=== PATIENT | female | born 1930 | race Caucasian/White ===

== ENCOUNTER 2017-06-08 12:47 | Day surgery (SDC) | payer OTHER ==
[~2017-06-08] VITALS: Ht 160 cm; Wt 57.1 kg
[2017-06-08] VITALS (7 sets, daily range): BP systolic 116–122; BP diastolic 58–69; PULSE 64–71; RESP 17–18; TEMP 98.2–98.4; O2SAT 92–95
[~2017-06-08 12:47] MED LIST: ASPI81 PO; CALC600T34 PO; CINNAMON; DEXAMETHASONE SOD PHOS 4 MG/ML VIAL IV ONE; FISH1000 PO; GLYCOPYRROLATE 1 MG/5 ML SYRINGE IV PUSH ONE; LIDOCAINE HCL 1% PF 5 ML SYRINGE OTHER ONE; MEVA40TA6 PO; NEOSTIGMINE 5 MG/5 ML SYRINGE IV PUSH ONE; ONDANSETRON HCL 4 MG/2 ML VIAL IV ONE; PHENYLEPH/NS 1000 MCG/10 ML SYR IV ONE; PROPOFOL 200 MG/20 ML AMP IV ONE; ROCURONIUM INJ 50 MG/5 ML SYRINGE IV PUSH ONE; VASO10TA8 PO; ePHEDrine/NS 25 MG/5 ML SYRINGE IV ONE
[2017-06-08] MEDS ORDERED: SODIUM CHLORID 0.9% 500 ML INJ 500 ML IV SCH (13:15)
[2017-06-08] MEDS ORDERED: LORazepam 1 MG TAB SL SCH (13:15)
[2017-06-08] MEDS ORDERED: LEVOFLOXACIN 500 MG PREMIX INJ 100 ML IV ONE (13:15)
[2017-06-08] MEDS ORDERED: ACETAMINOPHEN 325 MG TAB PO PRN (13:30)
[2017-06-08] MEDS ORDERED: SODIUM CHLORID 0.9% 500 ML IV PRN (13:30)
[2017-06-08] MEDS ORDERED: METOPROLOL TARTRATE 25 MG TAB PO PRN (13:30)
[2017-06-08] MEDS ORDERED: CHLORHEXIDINE GLUCONATE 2 % 1 PACK (2 CLOTHS) TOPICAL PRN (13:30)
[2017-06-08] MEDS ORDERED: ALUMINUM/MAGNESIUM/SIMETH 30 ML CUP PO PRN (13:30)
[2017-06-08] MEDS ORDERED: LACTATED RINGER'S 1000 ML IV PRN (13:30)
[2017-06-08] MEDS ORDERED: POVIDONE IODINE 5% (ANTISEPSIS KIT) 4 APPLICATIONS EACH NARE PRN (13:30)
[2017-06-08] MEDS ORDERED: INSULIN HUMAN REGULAR 1,000 UNITS/10 ML VIAL SQ PRN (13:30)
[2017-06-08 13:57] LABS: AUTOMATED NEUTROPHIL # 4.7 TH/MM3 (1.8-7.7); BASOPHIL # 0.1 TH/MM3 (0-0.2); BASOPHIL % 1.1 % (0.0-2.0); EOSINOPHIL # 0.1 TH/MM3 (0-0.4); EOSINOPHIL % 0.9 % (0.0-4.0); HEMATOCRIT 44.2 % (35.0-46.0); HEMOGLOBIN 14.9 GM/DL (11.6-15.3); LYMPH % 24.6 % (9.0-44.0); MEAN CELL VOLUME 86.9 FL (80.0-100.0); MEAN CORPUSCULAR HEMOGLOBIN 29.3 PG (27.0-34.0); MEAN CORPUSCULAR HGB CONC 33.8 % (32.0-36.0); MEAN PLATELET VOLUME 8.3 FL (7.0-11.0); MONO % 14.9 % (0.0-8.0); MONOCYTE # 1.2 TH/MM3 (0-0.9); NEUT % 58.5 % (16.0-70.0); PLATELET COUNT 342 TH/MM3 (150-450); RED BLOOD COUNT 5.08 MIL/MM3 (4.00-5.30); RED CELL DISTRIBUTION WIDTH 16.6 % (11.6-17.2); WHITE BLOOD COUNT 8.1 TH/MM3 (4.0-11.0)
[2017-06-08 14:07] LABS: INTERNATIONAL NORMALIZED RATIO 3.3 RATIO; PROTHROMBIN TIME - PATIENT 33.5 SEC (9.8-11.6)
[2017-06-08] MEDS ORDERED: FURO20TA PO (14:15)
[2017-06-08] MEDS ORDERED: METO100T PO (14:15)
[2017-06-08] MEDS ORDERED: DIGO1TAB59 PO (14:15)
[2017-06-08] MEDS ORDERED: PANT40TA3 PO (14:15)
[2017-06-08] MEDS ORDERED: LEVO88TA2 PO (14:15)
[2017-06-08] MEDS ORDERED: JANT4TAB PO (14:15)
[2017-06-08] MEDS ORDERED: POTA10CA PO (14:15)
[2017-06-08] MEDS ORDERED: DILT1TAB4 PO (14:15)
[2017-06-08] MEDS ORDERED: LORA1TAB12 PO (14:15)
[2017-06-08 14:20] LABS: BICARBONATE 25.3 MEQ/L (21.0-32.0); CALCIUM 9.2 MG/DL (8.5-10.1); CREATININE 0.89 MG/DL (0.50-1.00)
[2017-06-08] MEDS ORDERED: PROTAMINE SULFATE 50 MG/5 ML VIAL ONE (14:59)
[2017-06-08] MEDS ORDERED: HEPARIN-D5W 25,000 U/250 ML 250 ML ONE (14:59)
[2017-06-08] MEDS ORDERED: HEPARIN SODIUM - IV 10,000 UNITS/10 ML VIAL ONE (15:00)
[2017-06-08] MEDS ORDERED: LIDOCAINE HCL 2% 50 ML VIAL ONE (15:54)
[2017-06-08] MEDS ORDERED: SUGAMMADEX SODIUM 200 MG/2 ML VIAL IV PUSH ONE (17:56)
[2017-06-08] MEDS ORDERED: LORazepam 2 MG/ML VIAL IV PUSH PRN (18:00)
[2017-06-08] MEDS ORDERED: LIDOCAINE HCL 1% 50 ML VIAL INFIL PRN (18:00)
[2017-06-08] MEDS ORDERED: LORazepam 1 MG TAB PO PRN (18:00)
[2017-06-08] MEDS ORDERED: SODIUM CHLOR 0.9% 250 ML INJ 250 ML IV PRN (18:00)
[2017-06-08] MEDS ORDERED: ATROPINE SULFATE 1 MG/ML VIAL IV PUSH PRN (18:00)
[2017-06-08] MEDS ORDERED: BACITRACIN OINT 0.9 GM PKT TOP ONE (18:00)
[2017-06-08] MEDS ORDERED: ONDANSETRON HCL 4 MG/2 ML VIAL IV PUSH PRN (18:00)
[2017-06-08] MEDS ORDERED: oxyCODONE/ACETAMINOPHEN 5 MG/325 MG TAB PO PRN ×2 (18:00)
--- NOTE | 2017-06-08 18:00 | PD.CARD ---
Atrial Fibrillation Ablation PROCEDURE DATE: Jun 08, 2017 PROCEDURES PERFORMED: 1. Electrophysiology study on Isuprel infusion 2. CS cannulation 3. 3-D mapping 4. Transseptal approach 5. Right and left heart catheterization 6. Intracardiac echo 7. Radiofrequency ablation of atrial fibrillation 8. Pulmonary vein isolation 9. Posterior wall ablation 10. Mitral valve isolation 11. Mitral line creation 12. Left atrial tachycardia ablation 13. Roof line creation 14. Floor line creation 15. Anterior wall ablation 16. Cardioversion INDICATIONS FOR THE PROCEDURE Ms. Peterson is a 86-year-old female with hx of atrial fibrillation, very symptomatic, on multiple medications referred for electrophysiology study and ablation. The risks, the nature and the benefits of the procedure were clearly stated to her. The risks include pneumothorax, cardiac perforation, stroke, need for open heart surgery and even . The patient understood and agreed to proceed. DESCRIPTION OF THE PROCEDURE IN DETAIL As written informed consent was obtained prior to esophageal echocardiogram, the patient was kept on the table where she was prepped and draped in the usual sterile fashion. Conscious sedation was initiated and maintained throughout the procedure by the anesthesiologist. Once sedation was verified, the right and left inguinal areas were anesthetized with 2% Xylocaine. Using modified Seldinger technique, the left femoral vein was cannulated on three occasions, three guidewires were advanced. Over the wire a 6, 7 and a 10-Guatemalan Hemaquet were advanced. Then the left femoral artery was cannulated on one occasion, one guidewire was advanced. Over the wire a 4-Guatemalan Hemaquet was advanced. Then the right femoral vein was cannulated on one occasion, one guidewire was advanced. Over the wire a 8-Guatemalan Hemaquet was advanced. Then under fluoroscopic guidance through the 6 and 7-Guatemalan Hemaquet, two 5-Guatemalan Woodrow curved quadripolar electrophysiology catheters were advanced and placed around the His as well as coronary sinus. Basic interval was measured. The patient was in atrial fibrillation. Through the 10-Guatemalan Hemaquet, a Cordis Millan AcuNav intracardiac echo catheter was advanced and placed at the right atrium. Multiple view was obtained. There was no pericardial effusion, pulmonary vein was seen, atrial septal was visualized. There was moderate to severe left atrial enlargement. Then the 8-Guatemalan Hemaquet in the right femoral vein was exchanged for Agilis transseptal sheath that was placed all the way to the superior vena cava. Through the sheath a José needle was advanced, then the sheath, the dilator and the needle were progressed until foci engaged. Once engaged, the needle was advanced. RF was delivered for 2 seconds. I was able to cross into the left atrium. Once the needle crossed, the dilator was advanced. Once the dilator crossed, the sheath was advanced. Once the sheath crossed, the dilator and the needle were removed. At this point I did flood the system and fluid movement was seen in the left atrium the indicates the sheath is in good position. The patient already received 4,000 units of heparin. The goal is to keep an ACT around 350 during ablation. Then through the sheath a [facility]. Renard 20 pulse circumferential catheter was advanced. Using Newsblur endocardial solution mapping system, a two-dimensional configuration of the left atrium was obtained. Points were taken at the left superior and inferior veins, right superior and inferior veins, mitral valve, and appendages. Then through the sheath a St. Renard TactiCath 65cm 3.5mm irrigated tipped mapping and radiofrequency ablation catheter was advanced. Esophageal probe was placed temperature monitoring during ablation. When it increased to 0.5 degrees Celsius above baseline, I moved to a different area of the atrium. First I did isolate the left superior and inferior vein. I did make a big [place] [employer] around the veins. Posterior was ablated. Then a roof line was created, a floor line was created, a mitral line was isolated, then the mitral valve was isolated. At that point the patient was in left atrial tachycardia. I did create a line from the floor to the roof area, passing by the left atrial appendage. Then the right superior and inferior veins were isolated. I did remap the atrium. There is no significant signal in the atrium. At this point I decided to proceed with cardioversion. A 200 sync biphasic joule was delivered that converted the patient into sinus rhythm. At that point I did advance the circumferential catheter again into the vein. There was no signal into the vein, pacing from the vein showed no conduction to the atrium. Isuprel infusion was initiated at 10 mcg for over 10 minutes. No tachyarrhythmia was induced, post Isuprel no tachyarrhythmia was induced. At that point the procedure was complete. All catheters were removed, atrial septal sheath was exchanged for 9-Guatemalan Hemaquet, intracardiac echo showed no pericardial effusion. There is still good flow in the pulmonary vein. The patient is going to be transferred to the recovery room. No incident report. The patient tolerated the procedure. Blood loss was minimal. FINDINGS 1. Electrocardiogram: At baseline the patient was in atrial fibrillation, post procedure the patient was in sinus rhythm. 2. Basic interval: Base cycle length was around 520ms. Post ablation she was around 1100 milliseconds. 3. Tachyarrhythmia: Atrial fibrillation was mapped and ablated. Atrial tachycardia was ablated. The ablation was successful. CONCLUSION Successful electrophysiology study, mapping, radiofrequency ablation of atrial fibrillation, left atrial tachycardia, pulmonary vein isolation, posterior ablation, mitral valve isolation, mitral line creation, roof line creation, floor line creation, left atrial tachycardia, and cardioversion. COMMENTS AND RECOMMENDATIONS The patient is going to be transferred to the telemetry unit. Will be observed and when stable can be discharged home. Cele Mandujano MD Jun 08, 2017 18:00
--- NOTE | 2017-06-08 18:32 | CATHPROC ---
Patient Name: NAEEM EVANS Study #: [id number] Initial MD: Cele Mandujano Date of : 1930 Study Date: 06/08/2017 Cardiac Catheterization Report 06/08/2017 6:32:25 PM Financial #: [id number] 1 of 10 Patient Name: NAEEM EVANS Study #: [id number] Initial MD: Cele Mandujano Date of : 1930 Study Date: 06/08/2017 Entire Case Report Patient Information Patient Name NAEEM EVANS Date of 1930 Age 86 years Financial # [id number] Gender F AlternateID Lab Number 2 Room Number DC07 Height (in) 63.0 Height (cm) 160.0 BSA 1.56 Weight (lbs) 120.6 Weight (kg) 54.8 Patient Address/Phone Number Home Address [facility] Home Phone Number [phone] [facility] [phone] Study Information Study Number Admission Scheduled Start Study Start [id number] Jun 08 2017 12:47PM 06/08/2017 Jun 08 2017 3:14PM [place] Service Electrophysiology Study Admit Source Facility Department Other [facility] - Rail Signal Designer Physician and Clinical Staff Initial Cele Arora Search Engine Marketing Manager Liz Terrazas,RT(R) TECH2 Other Anesthesia, FINANCE ADVISOR Recorder Jayesh RAYA, Yuan Recorder Deanna Martinez RN Recorder Shawna Ng RN Scrub Jose Shannon,RT(R) X-Ray Olivia Ventura RCIS Procedures Performed Procedure Location (Site) Vessel Name Ablation Procedure Cardioversion ICE CATHETER INSERT RA Atruim RF Ablation LT. ATRIUM LT. ATRIUM 06/08/2017 6:32:25 PM Financial #: [id number] 2 of 10 Patient Name: NAEEM EVANS Study #: [id number] Initial MD: Cele Mandujano Date of : 1930 Study Date: 06/08/2017 Equipment Time Air Antisubmarine Officer Description Size Mfg Part Number Used/Scraped NEEDLE, TRANSSEPTAL NR 98 [id number] 15:52 [facility] Used C1 *[id number] [employer]/ EP [id number] 15:52 KIT, TRANSDUCER / AFIB Used PACER *[id number]- CATHETER, TACTICATH ABLAT BUNDLE 15:52 BUNDLE-ST. NGOZI Used 65 BUNDLE *[id number]- BUNDLE [id number] CATHETER, FR7 OPTIMA SPIRAL 15:52 BUNDLE-ST. NGOZI FR7 *[id number]- Used BUNDLE BUNDLE [id number] 15:52 BUNDLE-ST. NGOZI CATHETER, JSN, QUAD BUNDLE FR 5 *[id number]- Used BUNDLE [id number] 15:52 BUNDLE-ST. NGOZI CATHETER, JSN, QUAD BUNDLE FR 5 *[id number]- Used BUNDLE [id number] SET, COOL POINT TUBING 15:52 BUNDLE-ST. NGOZI *[id number]- Used BUNDLE BUNDLE SHEATH, FR8.5 STEERABLE SM 15:52 BUNDLE-ST. NGOZI 71CM [id number] Used 71CM BUNDLE COVER, TRANSDUCER CABLE 612-113 15:52 [employer] Used ACUNAV *[id number] 15:52 CORDIS/PACER SHEATH, FR10 ANG 11CM FR 10 Used *[id number] 15:52 CORDIS/PACER SHEATH, FR9 ANG 11CM FR 9 [id number] Used [id number] 15:52 [employer] (MCTAS: [place]) INDUSTRIES PACK, CCL CUSTOM * Used *[id number] 15:52 [employer] (MCTAS: [place]) PACER REYES, LIMB * 2530 *[id number] Used [id number] 15:52 [facility] MEDICAL SHEATH, FR4.5 PRELUDE 11CM FR 4.5 Used [id number] 15:52 NAMIC TUBING, HIGH PRESSURE 48" 48" Used *[id number] 15:52 NAMIC TUBING, HIGH PRESSURE 48" 48" Used *[id number] 15:52 [place] MEDICAL BL[employer]ET,WARM AIR CCL * Used *[id number] [id number] 15:52 ST. [employer] MEDICAL ELECTRODE KIT, MARY X SURFACE * Used *1996606 127388 15:52 [employer] MEDICAL SHEATH, EPS, FR6 FAST CATH FR 6 Used *[id number] 15:52 [employer] MEDICAL SHEATH, EPS, FR7 FAST CATH FR 7 [id number] Used 364702 15:52 [employer] MEDICAL SHEATH, EPS, FR8 FAST CATH FR 8 Used *[id number] CATHETER, ACUNAV FR10 ICE [id number] 16:44 TANMAY FR 10 Used (TANMAY) *[id number] [facility] PAD, ELECTROSURGICAL 15:52 * [id number] *[id number] Used SURGICAL GROUNDING (BLUE) 06/08/2017 6:32:25 PM Financial #: [id number] Patient Name: NAEEM EVANS Study #: [id number] Initial MD: Cele Mandujano Date of : 1930 Study Date: 06/08/2017 Insurance Information Insurance Payor Private Health Insurance Third Democrat Third Democrat Number [employer] [facility] [facility] History: Allergies Allergy Reaction NKDA Labs Hgb (g/dl) Hct (%) WBC (l/cumm) Platelets (thousands) 11.60-17.00 35.00-51.00 4.00-11.00 150.00-450.00 14.9 44.2 8.1 342 Glucose (mg/dl) BUN (mg/dl) Creatinine (mg/dl) BUN:Creatinine (1:x) 74.00-106.00 7.00-18.00 0.50-1.30 10.00-20.00 114 12 0.9 13.3 Na (meq/l) K (meq/l) 136.00-145.00 3.50-5.10 137 4 INR (PTT:PT) 0.90-1.10 3.3 CPK-MB (ng/ML) 0.50-3.60 Not Drawn Medication Medication Total Dose (Bolus/Oral) Medication Total Dosage/Unit 1% XYLOCAINE 40 mL HEPARIN 6000 units PROTAMINE 40 mg 06/08/2017 6:32:25 PM Financial #: [id number] Patient Name: NAEEM EVANS Study #: [id number] Initial MD: Cele Mandujano Date of : 1930 Study Date: 06/08/2017 Medications (Bolus/Oral) Medication Time Given Dosage/Unit Administered By Reason 1% XYLOCAINE 06/08/2017 4:34:52 PM 20 mL Cele Mandujano 20 mL 1% XYLOCAINE given in lab by Cele Mandujano in Left Groin via Subcutaneous. Ordered by Martin Mandujano 1% XYLOCAINE 06/08/2017 4:39:23 PM 20 mL Cele Mandujano 20 mL 1% XYLOCAINE given in lab by Cele Mandujano via Subcutaneous. Ordered by Cele Mandujano. HEPARIN 06/08/2017 4:51:29 PM 4000 units Anesthesia, FINANCE ADVISOR As per physicians ve rbal order 4000 units HEPARIN given in lab by Anesthesia, FINANCE ADVISOR via Peripheral IV. Ordered by Cele Mandujano. Reas on: As per physicians verbal order. HEPARIN 06/08/2017 5:05:12 PM 1000 units Anesthesia, FINANCE ADVISOR As per physicians ve rbal order 1000 units HEPARIN given in lab by Anesthesia, FINANCE ADVISOR via Peripheral IV. Ordered by Cele Mandujano. Reas on: As per physicians verbal order. HEPARIN 06/08/2017 5:18:02 PM 1000 units Anesthesia, FINANCE ADVISOR As per physicians ve rbal order 1000 units HEPARIN given in lab by Anesthesia, FINANCE ADVISOR via Peripheral IV. Ordered by Cele Mandujano. Reas on: As per physicians verbal order. PROTAMINE 06/08/2017 5:49:48 PM 40 mg Anesthesia, FINANCE ADVISOR As per physicians verb al order 40 mg PROTAMINE given in lab by Anesthesia, FINANCE ADVISOR via Peripheral IV. Ordered by Cele Mandujano. Reason: As per physicians verbal order. Medication (Drip) Medication Time Given Dosage/Unit Concentration/Unit Diluent (ml) Solution HEPARIN DRIP 06/08/2017 5:05:32 PM 1000 units/hr 10874 units 250 D5W 1000 units/hr HEPARIN DRIP given in lab by Anesthesia, FINANCE ADVISOR via Peripheral IV. Pump/Drip Flow = 10 ml /hr [place] [address] units in 250 ml. Ordered by Cele Mandujano. Reason: As per physicians verbal order. ISUPREL 06/08/2017 5:32:31 PM 10 mcg/min 1 mg 250 NaCl .9 10 mcg/min ISUPREL given in lab by Anesthesia, FINANCE ADVISOR via Peripheral IV. Pump/Drip Flow = 150 ml/hr usi ng NaCl .9 with a concentration of 1 mg in 250 ml. Ordered by Cele Mandujano. Reason: As per physicians verbal order. 06/08/2017 6:32:25 PM Financial #: [id number] 5 of 10 Patient Name: NAEEM EVANS Study #: [id number] Initial MD: Cele Mandujano Date of : 1930 Study Date: 06/08/2017 Initial Case Assessment Cardiovascular HR Rhythm NIBP Chest Pain 73 af 120/58 0 Edema Present Skin color Skin None Normal Warm Dry Circulatory - Right Pulses Dorsalis Pedis 1 Scale (0,1,2,3,4,d) Circulatory - Left Pulses Dorsalis Pedis 1 Scale (0,1,2,3,4,d) Circulatory - Lower Extremities Color Lower Right Color Lower Left Normal Normal Neurological State Oriented to time-place- Alert Moves all extremities person Respiration - General Respiration Rate SpO2 (%) (B/min) 20 91 06/08/2017 6:32:25 PM Financial #: [id number] 6 of 10 Patient Name: NAEEM EVANS Study #: [id number] Initial MD: Cele Mandujano Date of : 1930 Study Date: 06/08/2017 Final Case Assessment Cardiovascular HR Rhythm NIBP Chest Pain 60 sr 127/59 0 Edema Present Skin color Skin None Normal Warm Dry Circulatory - Right Pulses Dorsalis Pedis 3 Scale (0,1,2,3,4,d) Circulatory - Left Pulses Dorsalis Pedis 3 Scale (0,1,2,3,4,d) Circulatory - Lower Extremities Color Lower Right Color Lower Left Normal Normal Neurological State Lethargic Moves all extremities Respiration - General Respiration Rate SpO2 (%) O2 (lpm) (B/min) 16 93 8 Chronological Log Time Study Chronological Log 15:34:21 Patient arrived via Bed. 15:34:30 Patient Name, D.O.B, / Armband Verified By R.N. 15:34:45 Consent signed by the physician and the patient and verified by the Rail Signal Designer staff. 15:35:57 Pre-op and post- op instructions given; patient acknowledges understanding of instructions. 15:36:08 Patient has been NPO for More than 6Hrs. 15:37:19 Skin Breakdown- none reported by patient 15:37:50 History and physical on the chart . 15:38:00 Indwelling Luna catheter present upon patient's arrival. 15:40:11 Gretchen Prominences Protected 06/08/2017 6:32:25 PM Financial #: [id number] Patient Name: NAEEM EVANS Study #: [id number] Initial MD: Cele Mandujano Date of : 1930 Study Date: 06/08/2017 15:40:59 Disposable Defibrillator Pads Placed On Patient. 15:42:50 Patient Warmer Placed on the Table. Assessment: Initial Case, HR=73 BPM, Rhythm=af, XMRR=659/58 mmhg, Chest Pain=0, Edema=None, Col or=Normal, Skin = Warm, Dry Right Pulses: Tristan Ped=1 Left Pulses: Trisatn Ped=1 15:45:00 Lower Right Extremities: Color=Normal Lower Left Extremities: Color=Normal Neurological: State=Alert, Ox3, HENRY Respiration: Resp=20 B/min, SpO2=91 % 15:45:17 A # 20 IV was noted in the Antecubital (left). Grade = 0 0.9% NaCl at kvo 15:45:41 A # 20 IV was noted in the Antecubital (right). Grade = 0 0.9% NaCl at kvo 15:50:19 Table restraints applied according to hospital policy 15:58:34 Bilateral groins prepped with 2% chlorhexidine, and draped after a 3 minute waiting time. 16:01:39 Reference ECG taken 16:10:18 Applied O2@4L/min NC for consistent sats 88-90%. 16:15:05 Anesthesia at bedside. Assumes care of patient. 16:18:21 MD arrived. 16:25:10 Anesthesiologist present for intubation. Time Out. Correct patient, procedure, procedure equipment, site and side verified with physicia n present. Time 16:31:21 concurred by MD, individual staff and FINANCE ADVISOR. Time Out #2 - Consents verified, patient in correct position, all results are labled and displa yed, safety precautions 16:32:05 taken, antibiotics administered. Time out concurred by MD, individual staff and FINANCE ADVISOR in procedu re 16:32:06 Case Start 16:32:08 CHASE in progress CHASE completed. EPS commencing. 16:33:57 16:34:52 20 mL 1% XYLOCAINE given in lab by Cele Mandujano in Left Groin via Subcutaneous. Ordered by Cele Mandujano. 16:35:45 Vascular access was obtained in the Fem Art (left). 16:36:05 Vascular access was obtained in the Fem Vein (left). 16:36:45 Vascular access was obtained in the Fem Vein (left). 16:37:11 Vascular access was obtained in the Fem Vein (left). 16:37:42 A SHEATH, FR4.5 PRELUDE 11CM FR 4.5 was advanced into the Fem Art (left) using the Modified Seldinger technique. 16:37:55 A SHEATH, EPS, FR7 FAST CATH FR 7 was advanced into the Fem Vein (left) using the Modified Seldinger technique. 16:38:06 A SHEATH, EPS, FR6 FAST CATH FR 6 was advanced into the Fem Vein (left) using the Modified Seldinger technique. 16:38:13 A SHEATH, FR10 ANG 11CM FR 10 was advanced into the Fem Vein (left) using the Modified S eldinger technique. 16:39:08 Vascular access was obtained in the Fem Vein (right). 16:39:19 A SHEATH, EPS, FR8 FAST CATH FR 8 was advanced into the Fem Vein (right) using the Modified Seldinger technique. 16:39:23 20 mL 1% XYLOCAINE given in lab by Cele Mandujaon via Subcutaneous. Ordered by Cele Mandujano . 16:39:41 Vascular access was obtained in the Fem Vein (right). 16:39:51 A SHEATH, EPS, FR8 FAST CATH FR 8 was advanced into the Fem Art (right) using the Modified Seldinger technique. 06/08/2017 6:32:25 PM Financial #: [id number] Patient Name: NAEEM EVANS Study #: [id number] Initial MD: Cele Mandujano Date of : 1930 Study Date: 06/08/2017 A CATHETER, JSN, QUAD BUNDLE FR 5 was advanced vis Fem Vein (left) and placed in the CS. Placem ent was visually 16:41:32 confirmed under fluoroscopy. A CATHETER, JSN, QUAD BUNDLE FR 5 was advanced vis Fem Vein (left) and placed in the HIS. Place ment was 16:42:46 visually confirmed under fluoroscopy. 16:43:57 CATHETER, ACUNAV FR10 ICE (Beaming) FR 10 Was Postioned in the HRA A SHEATH, FR8.5 STEERABLE SM 71CM BUNDLE 71CM was exchanged in the Fem Vein (right). This was n ecessary in 16:44:05 order for catheter support. 16:45:03 Penrose needle in. 16:49:52 Penrose needle out. 16:50:11 A eps was advanced to the right atrium and passed through the septal wall to the left atriu m. 4000 units HEPARIN given in lab by Anesthesia, FINANCE ADVISOR via Peripheral IV. Ordered by Cele Mandujano . Reason: As per 16:51:29 physicians verbal order. A CATHETER, FR7 OPTIMA SPIRAL BUNDLE FR7 was advanced vis Fem Vein (right) and placed in the LA . Placement 16:51:35 was visually confirmed under fluoroscopy. 16:53:07 Mapping in progress 16:57:35 Activated Clotting Time Drawn 17:00:28 Mapping complete. Catheter was removed A CATHETER, TACTICATH ABLAT 65 BUNDLE was advanced vis Fem Vein (right) and placed in the LA. P lacement was 17:00:52 visually confirmed under fluoroscopy. 17:01:06 RF Ablation of the LT. ATRIUM with a eps. 17:04:46 ACT (Normal Range 90-180) = 302 1000 units HEPARIN given in lab by Anesthesia, FINANCE ADVISOR via Peripheral IV. Ordered by Cele Mandujano Reason: As per 17:05:12 physicians verbal order. 1000 units/hr HEPARIN DRIP given in lab by Anesthesia, FINANCE ADVISOR via Peripheral IV. Pump/Drip Flow = 10 ml/hr using 17:05:32 D5[place] [address] units in 250 ml. Ordered by Hanscy. Delbert Reason: As per corrie campos verbal order. 17:08:09 Ablation procedure performed: AFIB. 17:08:14 EP Procedure was performed. 17:11:31 Activated Clotting Time Drawn 17:17:46 ACT (Normal Range 90-180) = 325 1000 units HEPARIN given in lab by Anesthesia, FINANCE ADVISOR via Peripheral IV. Ordered by Cele Mandujano . Reason: As per 17:18:02 physicians verbal order. 17:25:00 Activated Clotting Time Drawn 17:27:00 Activated Clotting Time Redrawn 17:30:09 ECG rhythm of AF noted. Patient cardioverted at 200 joules. Success synch 17:30:54 Monitor sb 10 mcg/min ISUPREL given in lab by Anesthesia, FINANCE ADVISOR via Peripheral IV. Pump/Drip Flow = 150 ml/ hr using NaCl .9 17:32:31 with a concentration of 1 mg in 250 ml. Ordered by Cele Mandujano. Reason: As per physicians brenda bal order. 17:33:48 ACT (Normal Range 90-180) = 352 17:43:47 Isuprel off 17:45:18 Ablation Catheter was removed A SHEATH, FR9 ANG 11CM FR 9 was exchanged in the Fem Vein (right). This was necessary in ord er to minimize 17:46:09 site leakage. 17:47:37 All catheter(s) removed without difficulty 40 mg PROTAMINE given in lab by Anesthesia, FINANCE ADVISOR via Peripheral IV. Ordered by Cele Mandujano. R felix: As per 17:49:48 physicians verbal order. 06/08/2017 6:32:25 PM Financial #: [id number] 9 of Patient Name: NAEEM EVANS Study #: [id number] Initial MD: Cele Mandujano Date of : 1930 Study Date: 06/08/2017 17:59:32 Activated Clotting Time Drawn 18:01:00 ACT (Normal Range 90-180) = 131 18:01:31 Left fem arterial sheath removed; pressure applied to access site by DB. 18:01:44 Right groin venous sheath removed; pressure applied to access site by HH. 18:12:17 Left groin venous sheaths removed; pressure applied to access site by DB. 18:15:02 Defibrillator and ground pads removed. Skin intact. 18:23:46 PACU called. Spoke to Aníbal 18:24:21 Bedside Report will be given by FINANCE ADVISOR team. Assessment: Final Case, HR=60 BPM, Rhythm=sr, QEPP=877/59 mmhg, Chest Pain=0, Edema=None, [place] r=Normal, Skin = Warm, Dry Right Pulses: Tristan Ped=3 Left Pulses: Tristan Ped=3 18:29:43 Lower Right Extremities: Color=Normal Lower Left Extremities: Color=Normal Neurological: State=Lethargic, HENRY Respiration: Resp=16 B/min, SpO2=93 %, O2=8 lpm 18:30:31 Sterile dressing applied to sites. Sites wnl. 18:31:48 Case End 18:31:54 No case complications noted. 18:31:55 Cine recording checked. 18:36:01 Patient moved to stretcher End Study - Contrast Media Used In Study Contrast Total Opened (mL) Total Used (mL) Total Wasted (mL) Unspecified 0 0 0 End Study - Maximum Contrast Load Max Contrast Load (mL) 304.5 End Study - Radiation Exposure Fluoro Time (minutes) 1.3 End Study - Patient Disposition Complications Transferred To Interventional Outcome No Telemetry Bed successful 06/08/2017 6:32:25 PM Financial #: [id number]
[2017-06-08] MEDS ORDERED: DO NOT ADM ANY ANTICOAGULANT DRUGS PRN (18:42)
[2017-06-08] MEDS ORDERED: *RESP: ALBUTEROL 2.5 MG/3 ML NEB (PRN) PERIprocedural Use ONLY NEB ONE (19:01)
[2017-06-09] VITALS (11 sets, daily range): BP systolic 114–123; BP diastolic 58–62; PULSE 64–89; RESP 16–17; TEMP 96.8–98.2; O2SAT 93–94
[2017-06-09] MEDS ORDERED: LEVOTHYROXINE SODIUM 88 MCG TAB PO SCH (06:00)
[2017-06-09 06:57] LABS: INTERNATIONAL NORMALIZED RATIO 2.8 RATIO; PROTHROMBIN TIME - PATIENT 28.1 SEC (9.8-11.6)
--- NOTE | 2017-06-09 08:03 | EKG ---
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
--- NOTE | 2017-06-09 08:16 | PD.CARD.PN ---
Subjective Subjective Remarks Feels okay Objective Medications Current Medications Medications (Trade) Dose Ordered Sig/Flex Route Start Time Stop Time Status Last Admin (Ativan) 1 mg DIE REAMER SL 06/08/17 13:15 06/11/17 13:14 (Tylenol) 325 mg Q4H PRN PO 06/08/17 13:30 06/08/17 21:03 (Mag-Al Plus Susp Liq) 15 ml Q4H PRN PO 06/08/17 13:30 (Percocet 5-325 Mg) 1 tab Q4H PRN PO 06/08/17 18:00 (Percocet 5-325 Mg) 2 tab Q4H PRN PO 06/08/17 18:00 (Ativan Inj) 0.5 mg UNSCH PRN IV PUSH 06/08/17 18:00 06/09/17 17:59 (Atropine Inj) 0.5 mg UNSCH PRN IV PUSH 06/08/17 18:00 Sodium Chloride 250 ml @ 500 mls/hr ONCE PRN IV 06/08/17 18:00 06/09/17 17:59 (Zofran Inj) 4 mg Q4H PRN IV PUSH 06/08/17 18:00 (Xylocaine 1% Inj (50 ml)) 10 ml UNSCH PRN INFIL 06/08/17 18:00 06/09/17 17:59 (Cardizem Cd) 240 mg DAILY PO 06/09/17 09:00 (Lasix) 20 mg DAILY PO 06/09/17 09:00 (Synthroid) 88 mcg DAILY@0600 PO 06/09/17 06:00 06/09/17 05:44 (Ativan) 1 mg BID PRN PO 06/08/17 18:00 (Protonix) 40 mg DAILY PO 06/09/17 09:00 (KCl) 10 meq DAILY PO 06/09/17 09:00 (Coumadin) 4 mg DAILY@1600 PO 06/09/17 16:00 Miscellaneous Information ALL NURSING DEPARTME... UNSCH PRN .XX 06/08/17 18:42 06/09/17 18:41 Vital Signs / I&O Vital Signs Date Time Temp Pulse Resp B/P (MAP) Pulse Ox O2 Delivery O2 Flow Rate FiO2 06/09/17 06:34 73 06/09/17 05:12 76 06/09/17 04:30 64 06/09/17 03:06 98.2 65 17 123/62 (82) 93 06/09/17 03:00 65 06/09/17 02:22 67 06/09/17 01:00 65 06/09/17 00:20 64 06/08/17 23:40 98.2 69 17 116/62 (80) 92 06/08/17 23:00 65 06/08/17 22:05 18 06/08/17 22:00 68 06/08/17 21:00 68 06/08/17 20:00 64 06/08/17 19:45 98.4 65 18 121/58 (79) 94 06/08/17 19:30 98.2 62 15 120/56 (77) 95 Nasal Cannula 2 06/08/17 19:15 61 14 109/53 (71) 94 Nasal Cannula 2 06/08/17 19:00 60 16 116/56 (76) 92 Nasal Cannula 4 06/08/17 18:44 98.1 59 20 114/53 (73) 95 Simple Mask 6 06/08/17 14:07 71 18 122/69 (86) 95 I/O 06/08/17 06/08/17 06/08/17 06/09/17 06/09/17 06/09/17 07:00 15:00 23:00 07:00 15:00 23:00 Intake Total 10 ml 720 ml Output Total 250 ml 500 ml Balance -240 ml 220 ml Intake Oral 10 ml 720 ml IV Total 0 ml Output Urine Total 250 ml 500 ml Physical Exam GENERAL: Well-nourished, well-developed patient. SKIN: Warm and dry. Groin site soft without bruising or bleeding. HEAD: Normocephalic. EYES: No scleral icterus. No injection or drainage. NECK: Supple, trachea midline. No JVD or lymphadenopathy. CARDIOVASCULAR: Regular rate and rhythm without murmurs, gallops, or rubs. RESPIRATORY: Breath sounds equal bilaterally. No accessory muscle use. GASTROINTESTINAL: Abdomen soft, non-tender, nondistended. EXTREMITIES: No cyanosis, or edema. NEUROLOGICAL: Awake, alert, and oriented x 3. Non-focal. Laboratory Laboratory Tests Test 06/08/17 13:25 06/09/17 05:38 White Blood Count 8.1 TH/MM3 Red Blood Count 5.08 MIL/MM3 Hemoglobin 14.9 GM/DL Hematocrit 44.2 % Mean Corpuscular Volume 86.9 FL Mean Corpuscular Hemoglobin 29.3 PG Mean Corpuscular Hemoglobin Concent 33.8 % Red Cell Distribution Width 16.6 % Platelet Count 342 TH/MM3 Mean Platelet Volume 8.3 FL Neutrophils (%) (Auto) 58.5 % Lymphocytes (%) (Auto) 24.6 % Monocytes (%) (Auto) 14.9 % Eosinophils (%) (Auto) 0.9 % Basophils (%) (Auto) 1.1 % Neutrophils # (Auto) 4.7 TH/MM3 Lymphocytes # (Auto) 2.0 TH/MM3 Monocytes # (Auto) 1.2 TH/MM3 Eosinophils # (Auto) 0.1 TH/MM3 Basophils # (Auto) 0.1 TH/MM3 CBC Comment DIFF FINAL Differential Comment Prothrombin Time 33.5 SEC 28.1 SEC Prothromb Time International Ratio 3.3 RATIO 2.8 RATIO Activated Partial Thromboplast Time 39.1 SEC 36.2 SEC Blood Urea Nitrogen 12 MG/DL Creatinine 0.89 MG/DL Random Glucose 114 MG/DL Calcium Level 9.2 MG/DL Sodium Level 137 MEQ/L Potassium Level 4.0 MEQ/L Chloride Level 104 MEQ/L Carbon Dioxide Level 25.3 MEQ/L Anion Gap 8 MEQ/L Estimat Glomerular Filtration Rate 60 ML/MIN Assessment and Plan Problem List: (1) Atrial fibrillation ICD Codes: I48.91 - Unspecified atrial fibrillation Plan: Sinus rhythm on telemetry status post ablation. (2) S/P ablation of atrial fibrillation ICD Codes: Z98.890 - Other specified postprocedural states; Z86.79 - Personal history of other diseases of the circulatory system Plan: Continue [place], [place] home, follow-up with Dr. Mandujano in 3 weeks per my discussion with him. Angeli Brown Jun 09, 2017 08:16
[2017-06-09] MEDS ORDERED: POTASSIUM CHLORIDE 10 MEQ CAP PO SCH (09:00)
[2017-06-09] MEDS ORDERED: PANTOPRAZOLE SOD 40 MG DELAYED RELEASE TAB PO SCH (09:00)
[2017-06-09] MEDS ORDERED: DILTIAZEM-CD 240 MG CAP ER PO SCH (09:00)
[2017-06-09] MEDS ORDERED: FUROSEMIDE 20 MG TAB PO SCH (09:00)
--- NOTE | 2017-06-09 13:09 | EKG ---
Date Performed: 06/09/2017 Time Performed: 06:09:00 PTAGE: 86 years EKG: Sinus bradycardia with sinus arrhythmia with PVC(s) Left axis deviation Inferior infarct - age undetermined Possible anteroseptal infarct - age undetermined Lateral T wave changes may be due t o myocardial ischemia Abnormal ECG PREVIOUS TRACING : 06/08/2017 19.02 DOCTOR: Todd Shrestha Interpretating Date/Time 06/09/2017 13:05:27
--- NOTE | 2017-06-09 13:16 | EKG ---
Date Performed: 06/08/2017 Time Performed: 14:13:56 PTAGE: 86 years EKG: Atrial fibrillation. Left axis deviation Inferior infarct - age undetermined Possible anter oseptal infarct - age undetermined Lateral T wave changes may be due to myocardial ischemia Low QRS v oltages in limb leads Abnormal ECG PREVIOUS TRACING : 07/31/2009 11.24 DOCTOR: Todd Shrestha Interpretating Date/Time 06/09/2017 13:14:32
[2017-06-09] MEDS ORDERED: WARFARIN SOD 4 MG TAB PO SCH (16:00)
== END 2017-06-09 10:25 | disposition home or self-care (01) ==
LOC: HDIC 12:47 → HDOC 12:47 → HCIS 20:01 → HDOC 06-09 10:25
PROVIDERS: ATTEND Internal Medicine Interventional Cardiology
DX: I48.91 Unspecified atrial fibrillation (principal); I47.1 Supraventricular tachycardia; I51.7 Cardiomegaly; I50.9 Heart failure, unspecified; I10 Essential (primary) hypertension; Z79.01 Long term (current) use of anticoagulants
CPT/HCPCS: 00537; 80048; 85002; 85025; 85610; 85730; 86850; 86900; 86901; 92960; 93005; 93312; 93320; 93325; 93613; 93623; 93656; 93662; 94664; C1730; C1731; C1732; C1759; C1766; C2630; J1100; J1644; J1956; J2370; J2405; J2710; J2720; J3010; J7613